=== PATIENT | female | born 1980 | race African-American/Black ===

== ENCOUNTER 2022-07-30 03:20 | Emergency (ER) | payer OTHER ==
[~2022-07-30] VITALS: Ht 167.6 cm; Wt 83.6 kg
[2022-07-30 03:22] VITALS: BP 128/87
--- NOTE | 2022-07-30 03:23 | NUR ---
PT CRYSTAL ALS. TAKEN TO BED 4. [place] [employer] AT BEDSIDE
--- NOTE | 2022-07-30 03:34 | NUR ---
Dr. Lloyd examining patient.
--- NOTE | 2022-07-30 03:34 | NUR ---
Shadi blevins in [facility] [place] - 07/30/22 at 0335 by YAYO AMANDO AT BEDSIDE
[2022-07-30] MEDS ORDERED: NALO4SPR NS (03:43)
[2022-07-30 04:47] LABS: BARBITURATE, URINE NEGATIVE ng/ml (NEG <=200)
[2022-07-30 04:48] LABS: BENZODIAZEPINE, URINE NEGATIVE ng/mL (NEG <=200); CANNABINOID, URINE NEGATIVE ng/mL (NEG <=50); COCAINE, URINE NEGATIVE ng/mL (NEG <=300); OPIATE, URINE NEGATIVE ng/mL (NEG <=2000); PHENCYCLIDINE SCREEN,URINE NEGATIVE ng/mL (NEG <=25)
[2022-07-30 05:15] VITALS: BP 121/75
--- NOTE | 2022-07-30 05:17 | NUR ---
Patient discharged with v/s stable. Written and verbal after care instructions given and explained. Patient alert, oriented and verbalized understanding of instructions. Ambulatory with steady gait. All questions addressed prior to discharge. ID band removed. Patient advised to follow up with PMD. Rx of Naloxone given. Patient educated on indication of medication including possible reaction and side effects. Opportunity to ask questions provided and answered.
== END 2022-07-30 05:17 | disposition home or self-care (01) ==
LOC: MED 03:20
DX: T43.621A Poisoning by amphetamines, accidental (unintentional), initial encounter (principal); F17.210 Nicotine dependence, cigarettes, uncomplicated; Z79.899 Other long term (current) drug therapy; Z98.890 Other specified postprocedural states; Y92.89 Other specified places as the place of occurrence of the external cause
CPT/HCPCS: 80305; 99283